=== PATIENT | female | born 1975 | race Caucasian/White ===

== ENCOUNTER 2017-09-08 13:27 | Emergency (ER) | payer MEDICAID, SELFPAY ==
[2017-09-08 13:46] VITALS: BP 134/74; PULSE 64; RESP 16; TEMP 36.9; O2SAT 99; BMI 23.6
[2017-09-08 14:20] LABS: UTC Influenza A Antigen Negative (Negative); UTC Influenza B Antigen Negative (Negative); UTC Strep Screen (Rapid) Negative (Negative)
--- NOTE | 2017-09-08 14:30 | HMH.EDUTC ---
[facility] [place] Disposition Clinical Impression: Acute sinusitis with symptoms > 10 days Disposition: Home, Self-Care Condition on Discharge: Good Instructions: DI for Sinusitis Additional Instructions: * Start antibiotic and be sure to take as ordered for the FULL length of time even if you feel better. Sinus infections do not get better overnight. It may take 2-3 days to notice much improvement so be sure to use conservative measures as discussed for symptoms. * OK to continue Sudafed. * Start Flonase 2 sprays each nostril daily to help with nasal congestion, sinus and ear pressure/inflammation. if this really helps, similiar to your nasonex and safe to take year round. ONce worse symptoms are over, decrease to one spray each nostril daily and see if that is just as helpful. If not, increase back to two. * Lots of fluids * Sleep elevated * Humidifier/vaporizer * Sinus rinses * warm salt water gargles * warm fluids * sore throat lozenges Prescriptions: Amoxicillin/Potassium Clav [Augmentin 875-125 Tablet] 1 tab PO Q12H #20 tab Fluticasone Propionate [Flonase 50mcg nasal spray 16gm] 2 spr NS DAILY #1 bottle Referrals: Bradly Britton MD [Primary Care Provider] - (IMMEDIATELY for new or worsening symptoms OR no noticeable improvement over the next 3-4 days. 911 for difficulty breathing or swallowing.) Forms: Work/School Release Time of Disposition: 14:41 Medical Decision Making Vital Signs: 09/08/17 13:46 Temperature 98.5 F Temperature Source Temporal Artery Scan Pulse Rate [Left] 64 Respiratory Rate 16 Blood Pressure [Left Arm] 134/74 Blood Pressure Mean [Left Arm] 94 Blood Pressure Source [Left Arm] Automatic Cuff Blood Pressure Position [Left Arm] Sitting 02 Sat by Pulse Oximetry 99 Oxygen Delivery Method Room Air - Lab Data Lab Results 09/08/17 13:48: Influenza Type A Ag Negative, Influenza Type B Ag Negative, Strep Scn Rapid Clinic Negative Orders (Tests/Meds): ORDERS Category Date Time Status Strep Screen Confirmation Stat Micro 09/08/17 13:48 Received - [place] Inquiry Pt receiving controlled substance: No [facility] [place] HPI - General Stated complaint: ears hurting,poss flu Time Seen by Provider: 09/08/17 14:15 Mode of Arrival: Ambulatory Source of Information: Patient Limitations: No Limitations Description of Symptoms (Recalled from Triage Doc. by RN): COUGH, CONGESTION, SORE THROAT YESTERDAY HEENT Symptoms (Recalled from RN notes): Yes Resp Symptoms (Recalled from RN notes): No Skin Symptoms (Recalled from RN notes): No MS Symptoms (Recalled from RN notes): No Functional Status (Recalled from RN notes): N - History of Present Illness Provider Complaint: c/o nasal congestion, thick nasal drainage, sore throat, PND x weeks to months. Really I keep it . Was seen at clinic 2 weeks ago for it. Enc to stop claritin and start zyrtec so she has. Despite mucinex, zyrtec, sudafed, and tylenol she has had aches, chills, feeling feverish and persistant symptoms w/ sinus pain at times now x 3-4 days. Reports years ago was on nasonex and it helped. Asked for prescription at [facility] but was told it was OTC and couldn't find it. Thinks her insurance would cover it if appropriate. Two coworkers w/ flu. Has not had flu vaccine. - Related Data Previous Rx's Medication Instructions Recorded Amoxicillin/Potassium Clav 1 tab PO Q12H #20 tab 09/08/17 [Augmentin 875-125 Tablet] Fluticasone Propionate [Flonase 2 spr NS DAILY #1 bottle 09/08/17 50mcg nasal spray 16gm] Allergies Allergy/AdvReac Type Severity Reaction Status Date / Time codeine AdvReac Mild VOMITING Verified 09/08/17 13:51 - Worker's Comp Is this a Worker's Comp case?: No H History I have reviewed the patient's past medical history: Yes (environmental allergies) Other Surgeries: Yes: Other (hysterectomy) - *Social History Smoking Status: Never smoker Alcohol Intake: never - Psychiatric History Expr
--- NOTE | 2017-09-08 14:34 | ED_ITS ---
[facility] [place] Impression: Acute sinusitis with symptoms > 10 days Disposition: Home, Self-Care Condition on Discharge: Good Instructions: DI for Sinusitis Additional Instructions: * Start antibiotic and be sure to take as ordered for the FULL length of time even if you feel better. Sinus infections do not get better overnight. It may take 2-3 days to notice much improvement so be sure to use conservative measures as discussed for symptoms. * OK to continue Sudafed. * Start Flonase 2 sprays each nostril daily to help with nasal congestion, sinus and ear pressure/inflammation. if this really helps, similiar to your nasonex and safe to take year round. ONce worse symptoms are over, decrease to one spray each nostril daily and see if that is just as helpful. If not, increase back to two. * Lots of fluids * Sleep elevated * Humidifier/vaporizer * Sinus rinses * warm salt water gargles * warm fluids * sore throat lozenges Prescriptions: Amoxicillin/Potassium Clav [Augmentin 875-125 Tablet] 1 tab PO Q12H #20 tab Fluticasone Propionate [Flonase 50mcg nasal spray 16gm] 2 spr NS DAILY #1 bottle Referrals: Bradly Britton MD [Primary Care Provider] - (IMMEDIATELY for new or worsening symptoms OR no noticeable improvement over the next 3-4 days. 911 for difficulty breathing or swallowing.) Forms: Work/School Release Time of Disposition: 14:41 Medical Decision Making Vital Signs: 09/08/17 13:46 Temperature 98.5 F Temperature Source Temporal Artery Scan Pulse Rate [Left] 64 Respiratory Rate 16 Blood Pressure [Left Arm] 134/74 Blood Pressure Mean [Left Arm] 94 Blood Pressure Source [Left Arm] Automatic Cuff Blood Pressure Position [Left Arm] Sitting 02 Sat by Pulse Oximetry 99 Oxygen Delivery Method Room Air - Lab Data Lab Results 09/08/17 13:48: Influenza Type A Ag Negative, Influenza Type B Ag Negative, Strep Scn Rapid Clinic Negative Orders (Tests/Meds): ORDERS Category Date Time Status Strep Screen Confirmation Stat Micro 09/08/17 13:48 Received - [place] Inquiry Pt receiving controlled substance: No [facility] [place] - General Stated complaint: ears hurting,poss flu Time Seen by Provider: 09/08/17 14:15 Mode of Arrival: Ambulatory Source of Information: Patient Limitations: No Limitations Description of Symptoms (Recalled from Triage Doc. by RN): COUGH, CONGESTION, SORE THROAT YESTERDAY HEENT Symptoms (Recalled from RN notes): Yes Resp Symptoms (Recalled from RN notes): No Skin Symptoms (Recalled from RN notes): No MS Symptoms (Recalled from RN notes): No Functional Status (Recalled from RN notes): N - History of Present Illness Provider Complaint: c/o nasal congestion, thick nasal drainage, sore throat, PND x weeks to months. Really I keep it . Was seen at clinic 2 weeks ago for it. Enc to stop claritin and start zyrtec so she has. Despite mucinex, zyrtec, sudafed, and tylenol she has had aches, chills, feeling feverish and persistant symptoms w/ sinus pain at times now x 3-4 days. Reports years ago was on nasonex and it helped. Asked for prescription at clinic but was told it was OTC and couldn't find it. Thinks her insurance would cover it if appropriate. Two coworkers w/ flu. Has not had flu vaccine. - Related Data Previous Rx's Medication Instructions Recorded Amoxicillin/Potassium Clav 1 tab PO Q12H #20 tab 09/08/17
== END 2017-09-08 14:43 | disposition home or self-care (01) ==
PROVIDERS: Emergency Provider Nurse Practitioner Family; PCP Emergency Medicine
DX: J01.90 Acute sinusitis, unspecified (principal)
CPT/HCPCS: 87804; 87880; 99201

== ENCOUNTER → 2018-04-29 08:21 | Outpatient (CLI) | payer MEDICAID, SELFPAY ==
--- NOTE | 2018-04-29 08:22 | MM_ITS ---
MM Dig screening mamm BI w/CAD CAD Screening COMPARISON: None, this is baseline INDICATION: There is no personal or family history of breast cancer TECHNIQUE: Standard CC and MLO images were obtained. R2 CAD reviewed. FINDINGS: Prominent diffuse heterogenic fibroglandular densities are seen in both breast most prominent in the upper outer quadrants somewhat lessening the sensitivity of mammography.. There are slightly suspicious nodular densities in the central portions of both breast best seen on the MLO projections. These are likely summation shadow but recommend the patient return for spot compression MLO views and 90 degree lateral views for additional evaluation. There are no suspicious microcalcifications. IMPRESSION: Dense and heterogenic parenchymal pattern with possible nodular densities in each breast as described BI-RADS Category: 0 Need Additional Imaging Evaluation RECOMMENDED FOLLOW-UP: IMM - IMMEDIATE FOLLOW-UP RECOMMENDED (A letter has been sent to the patient regarding results of the study.)
== END ==
PROVIDERS: PCP Emergency Medicine; Visit Provider Nurse Practitioner Obstetrics & Gynecology
DX: Z12.31 Encounter for screening mammogram for malignant neoplasm of breast (principal)
CPT/HCPCS: 77067

== ENCOUNTER → 2018-06-08 14:32 | Outpatient (CLI) | payer MEDICAID, SELFPAY ==
--- NOTE | 2018-06-08 | US_ITS ---
MM Dig mamm BI DX w/CAD, US breast RT complete, US breast LT complete INDICATION: Follow-up abnormal mammogram ORDERING PHYSICIAN: Seun Dennis MD PATIENT AGE: 42 years COMPARISON: None TECHNIQUE: Bilateral problem solving views along with bilateral breast ultrasound FINDINGS: There is dense fibroglandular tissue which decreases the sensitivity of mammography. Right breast: The asymmetric density in the central aspect of the right breast is not duplicated on spot compression views no or a right ML view. Right breast ultrasound: Echo dense fibroglandular tissue. No cystic or solid nodules apparent Left breast: Asymmetric density in the central aspect of the left breast appear to compress out as fibroglandular tissue. There is some asymmetry inferior to the area of concern also probably due to fibroglandular tissue. Left breast ultrasound: No solid or cystic lesions evident. Echo dense breast tissue noted. IMPRESSION: No convincing evidence of malignancy. Asymmetric density is probably related to fibroglandular tissue. Recommend bilateral 6 month follow-up with spot compression views BI-RADS Category: 3 Probably Benign Finding Short Term Follow-up RECOMMENDED FOLLOW-UP: 6M - 6 MONTH FOLLOW-UP (A letter has been sent to the patient regarding results of the study.)
== END ==
PROVIDERS: PCP Nurse Practitioner Obstetrics & Gynecology; Visit Provider Nurse Practitioner Obstetrics & Gynecology
DX: R92.2 Inconclusive mammogram (principal)
CPT/HCPCS: 76641; 77066

== ENCOUNTER → 2018-06-16 08:24 | Outpatient (CLI) | payer MEDICAID, SELFPAY ==
--- NOTE | 2018-06-16 08:25 | US_ITS ---
US gallbladder HISTORY: ITS.REASON: n/v abd pain ORDERING PHYSICIAN: Bradly Britton MD PATIENT AGE: 42 years Comparison: None FINDINGS: PANCREAS: Unremarkable. No obvious mass or abnormal fluid collection. No ductal dilatation LIVER: No focal liver lesions demonstrated. Homogeneous echogenicity. No intrahepatic biliary ductal dilatation evident RIGHT KIDNEY: Unremarkable. Normal size and echogenicity. No hydronephrosis GALLBLADDER: Gallstones are present. No gallbladder wall thickening, pericholecystic fluid, or biliary dilatation is evident.. Common bile duct measures 6 mm IMPRESSION: Cholelithiasis
== END ==
PROVIDERS: PCP Physician Assistant; Visit Provider Emergency Medicine
DX: R10.9 Unspecified abdominal pain (principal); R11.2 Nausea with vomiting, unspecified
CPT/HCPCS: 76705

== ENCOUNTER → 2018-07-03 13:39 | Outpatient (CLI) | payer MEDICAID, SELFPAY ==
[2018-07-03 14:28] LABS: Basophils # 0.1 K/mm3 (0-0.2); Eosinophils # 0.2 K/mm3 (0.0-0.4); Eosinophils % 3.3 % (0.1-12.0); Hemoglobin 12.6 g/dL (12.2-16.2); Lymphocytes # 1.6 K/mm3 (0.7-4.5); Lymphocytes % 24.6 K/mm3 (10-50); Mean Corpuscular HGB Conc 31.5 g/dL (31.8-35.4); Mean Corpuscular Hemoglobin 29.3 pg (27.0-31.2); Mean Platelet Volume 7.5 fl (7.4-10.4); Monocytes # 0.3 K/mm3 (0.1-1.0); Neutrophils # 4.2 K/mm3 (1.8-7.8); Neutrophils % 67.1 % (37.0-80.0); Platelet Count 303 K/mm3 (142-424); Red Cell Distribution Width 12.9 % (11.5-17.5); White Blood Count 6.3 K/mm3 (4.8-10.8)
[2018-07-03 16:28] LABS: Alanine Aminotransferase 29 U/L (12-78); Albumin Level 4.3 gm/dL (3.4-5.0); Albumin/Globulin Ratio 1.3 (1.1-1.8); Alkaline Phosphatase 60 U/L (46-116); Anion Gap 12.1 mEq/L (5-15); Aspartate Amino Transferase 17 U/L (15-37); Bilirubin,Total 0.3 mg/dL (0.2-1.0); Blood Urea Nitrogen 13 mg/dL (7-18); Calcium 9.6 mg/dL (8.5-10.1); Carbon Dioxide 31 mmol/L (21.0-32.0); Chloride 104 mmol/L (98-107); Creatinine,Serum 0.75 mg/dL (0.55-1.02); Estimated Glomerular Filt Rate 85 ml/min (>60); GFR (African American) 103 ML/MIN (>60); Globulin 3.4 gm/dl (1.3-3.2); Glucose 82 mg/dL (74-106); Potassium 4.1 mmoL/L (3.5-5.1); Sodium 143 mmol/L (136-145); Total Protein,Serum 7.7 gm/dL (6.4-8.2)
== END ==
PROVIDERS: Visit Provider Surgery
DX: K80.20 Calculus of gallbladder without cholecystitis without obstruction (principal)
CPT/HCPCS: 36415; 80053; 85025

== ENCOUNTER → 2018-08-27 21:28 | Outpatient (CLI) | payer MEDICAID, SELFPAY | PROVIDERS: Visit Provider Nurse Practitioner Family | DX: J02.9 Acute pharyngitis, unspecified (principal) ==

== ENCOUNTER → 2019-02-15 14:44 | Outpatient (CLI) | payer MEDICAID, SELFPAY ==
--- NOTE | 2019-02-15 14:47 | MM_ITS ---
MM Dig mamm BI DX w/CAD, US breast RT complete INDICATION: Follow-up abnormal mammogram ORDERING PHYSICIAN: Seun Dennis MD PATIENT AGE: 43 years COMPARISON: 04/29/2018, 06/08/2018 TECHNIQUE: Standard images performed along with right breast ultrasound FINDINGS: Very dense fibroglandular tissue decreasing the sensitivity of mammography. No malignant appearing mass or malignant appearing microcalcification. Right breast ultrasound: Echo dense fibroglandular tissue. No cyst or solid lesion evident. IMPRESSION: Benign findings. No evidence of malignancy. Recommend routine screening mammography as well as correlation with physical exam in this patient with very dense breast tissue BI-RADS Category: 1 Negative RECOMMENDED FOLLOW-UP: 1YR - 1 YEAR FOLLOW-UP (A letter has been sent to the patient regarding results of the study.)
== END ==
PROVIDERS: PCP Emergency Medicine; Visit Provider Nurse Practitioner Obstetrics & Gynecology
DX: R92.8 Other abnormal and inconclusive findings on diagnostic imaging of breast (principal)
CPT/HCPCS: 77066

== ENCOUNTER → 2019-02-16 08:52 | Outpatient (CLI) | payer MEDICAID, SELFPAY | PROVIDERS: PCP Emergency Medicine; Visit Provider Nurse Practitioner Obstetrics & Gynecology | DX: R92.8 Other abnormal and inconclusive findings on diagnostic imaging of breast (principal) | CPT/HCPCS: 76641 ==

== ENCOUNTER → 2020-06-13 12:22 | Outpatient (CLI) | payer BC, SELFPAY | PROVIDERS: PCP Nurse Practitioner Family; Visit Provider Nurse Practitioner Family | DX: Z03.818 Encounter for observation for suspected exposure to other biological agents ruled out (principal); R50.9 Fever, unspecified | CPT/HCPCS: U0003 ==

== ENCOUNTER → 2020-11-13 16:18 | Outpatient (CLI) | payer BC, SELFPAY ==
--- NOTE | 2020-11-13 16:18 | MM_ITS ---
PROCEDURE: MM DIG SCREENING MAMM BI W/CAD Digital Breast Tomosynthesis Included CLINICAL INDICATION: Routine Screening Mammogram There is a history of breast cancer in the patient's paternal cousin. COMPARISON: MG SCBI MM Dig screening mamm BI w/CAD from 04/29/2018 MG DXBI MM Dig mamm BI DX w/CAD from 06/08/2018 MG DIG MAMM-DX UNI-RT from 02/15/2019 TECHNIQUE: Standard CC and MLO images and 3D Tomosynthesis was obtained. R2 CAD reviewed. FINDINGS: Moderate diffuse somewhat heterogenic fibroglandular densities are seen in the central portions of both breast and the findings are fairly symmetrical and bilateral. Yordy images are most helpful in this type of breast parenchyma. There is no suspicious lesion in either breast and no suspicious microcalcifications. IMPRESSION: Moderate somewhat heterogenic breast density with no suspicious lesions seen BI-RAD Category: 1 Negative FOLLOW-UP: 1YR 1 Year Follow-up (A letter has been sent to the patient regarding results of the study.) Dictated by: Dr. Terry Poe MD 11/18/2020 08:39 Dr. Terry Poe MD in [place] 11/18/2020 08:39
== END ==
PROVIDERS: PCP Nurse Practitioner Family; Visit Provider Nurse Practitioner Obstetrics & Gynecology
DX: Z12.31 Encounter for screening mammogram for malignant neoplasm of breast (principal)
CPT/HCPCS: 77063; 77067

== ENCOUNTER → 2020-12-27 16:00 | Outpatient (CLI) | payer BC, SELFPAY | PROVIDERS: Visit Provider Nurse Practitioner Family | DX: Z20.822 Contact with and (suspected) exposure to COVID-19 (principal) | CPT/HCPCS: U0003 ==

== ENCOUNTER 2021-02-18 17:13 | Emergency (ER) | payer BC, SELFPAY ==
[2021-02-18 17:27] VITALS: BP 124/72; PULSE 101; RESP 16; TEMP 36.9; O2SAT 99; BMI 30.3
[2021-02-18 17:46] LABS: UTC Strep Screen (Rapid) Negative (Negative)
--- NOTE | 2021-02-18 17:51 | HMH.EDUTC ---
[facility] [place]: Bronchitis Maxillary sinusitis, acute Qualifiers: Recurrence: non-recurrent Qualified Code(s): J01.00 - Acute maxillary sinusitis, unspecified Disposition: Home, Self-Care Condition on Discharge: Good Instructions: Sinusitis, DI for Sinusitis, DI for Acute Bronchitis Additional Instructions: Start antibiotic today. Be sure to complete entire prescription even if feeling better Tylenol and ibuprofen as needed for pain or fever Humidifier/vaporizer/hot steamy shower Follow-up with primary care tomorrow. Follow-up immediately in the ER of the [facility] for new or worsening symptoms or no noticeable improvement over the next 48-72 hours. Stop smoking Start steroids today. Helps with inflammation therefore coughing and wheezing. Follow directions on package. Patient states they have taken them before. Prescriptions: predniSONE [Prednisone 20mg Tab] 20 mg PO BID #10 tab Transmission Status: Pending to [facility] Azithromycin [Zithromax 250mg tab] 250 mg PO DIRECTED #6 tab Transmission Status: Pending to [facility] Referrals: Daniel Davila MD [Primary Care Provider] - Forms: Work/School Release Time of Disposition: 17:56 Medical Decision Making - [place] Inquiry Pt receiving controlled substance: No Vital Signs: 02/18/21 17:27 Temperature 98.4 F Temperature Source Oral Pulse Rate [Right] 101 H Respiratory Rate 16 Blood Pressure [Right Arm] 124/72 Blood Pressure Mean [Right Arm] 89 02 Sat by Pulse Oximetry 99 - Lab Data Lab Results 02/18/21 17:36: Strep Scn Rapid Clinic Negative Orders (Tests/Meds): ORDERS Category Date Time Status Strep Screen Confirmation Stat Micro 02/18/21 17:36 Received [facility] [place] - General Chief complaint: [facility] Stated complaint: sore throat, facial pain Time Seen by Provider: 02/18/21 17:51 Mode of Arrival: Ambulatory Source of Information: Patient Limitations: No Limitations Description of Symptoms (Recalled from Triage Doc. by RN): pt c/o sinus pressure and sore throat. HEENT Symptoms (Recalled from RN notes): Yes (sore throat and sinus pressure) Resp Symptoms (Recalled from RN notes): No Skin Symptoms (Recalled from RN notes): No MS Symptoms (Recalled from RN notes): No Functional Status (Recalled from RN notes): na - History of Present Illness Provider Complaint: 45 yr old female presents for sinus pressure,yellow drainge,wheezing, cough and sore throat for 2 days - Related Data Home Medications Medication Instructions Recorded Confirmed aspirin 81 mg tablet,delayed 81 mg PO DAILY 07/13/20 12/27/20 release multivitamin 1 tab PO DAILY 07/13/20 12/27/20 loratadine 10 mg capsule 10 mg PO DAILY 11/10/20 12/27/20 Previous Rx's Medication Instructions Recorded ondansetron 4 mg disintegrating 4 mg PO Q6H PRN 3 Days #12 tab 12/27/20 tablet Azithromycin [Zithromax 250mg 250 mg PO DIRECTED #6 tab 02/18/21 tab] predniSONE [Prednisone 20mg 20 mg PO BID #10 tab 02/18/21 Tab] Allergies Allergy/AdvReac Type Severity Reaction Status Date / Time tomato Allergy Verified 02/18/21 17:21 codeine AdvReac Mild VOMITING Verified 02/18/21 17:21 - Worker's Comp Is this a Worker's Comp case?: No [facility] History - Hepatitis A Screen Drug use history?: No High risk sexual behaviors?: No History of sexually transmitted infection?: No Currently employed?: No Childcare worker?: No Do you have indoor plumbing?: Yes Do you have electricity?: Yes Attestation statement:: This patient has been screened for Hepatitis A risk factors. I have reviewed the patient's past medical history: Yes Medical History: Reports:: Anxiety, Gall Bladder Disease, Gastroesophageal Reflux Disease(GERD) Denies:: Cancer, Diabetes Mellitus Type 1, Diabetes Mellitus Type 2, Internal Pacemaker, MRSA, Seizures Other Medical History: Denies: Blood Transfusion Reactio
[2021-02-18 17:58] VITALS: BP 132/81; PULSE 85; RESP 18; TEMP 36.6
[2021-02-18 17:59] LABS: Adenovirus,PCR Not Detected (NotDetected); Bordetella Pertussis Not Detected (NotDetected); Chlamydophila Pneumoniae, PCR Not Detected (NotDetected); Coronavirus 19, PCR Not Detected (NotDetected); Coronavirus 229E Not Detected (NotDetected); Coronavirus NL63 Not Detected (NotDetected); Coronovirus HKU1,PCR Not Detected (NotDetected); Human Metapneumovirus Not Detected (NotDetected); Influenza A, PCR Not Detected (NotDetected); Influenza AH1, 2009 Not Detected (NotDetected); Influenza AH1, PCR Not Detected (NotDetected); Influenza AH3,PCR Not Detected (NotDetected); Influenza B, PCR Not Detected (NotDetected); Mycoplasma Pneumoniae, PCR Not Detected (NotDetected); Parainfluenza 1, PCR Not Detected (NotDetected); Parainfluenza 2, PCR Not Detected (NotDetected); Parainfluenza 3, PCR Not Detected (NotDetected); Parainfluenza 4, PCR Not Detected (NotDetected); Respiratory Syncytial Virus Not Detected (NotDetected); Rhinovirus/Enterovirus Not Detected (NotDetected)
[2021-02-18 19:33] LABS: Coronavirus OC43 Detected (NotDetected)
== END 2021-02-18 18:01 | disposition home or self-care (01) ==
PROVIDERS: Emergency Provider Nurse Practitioner Family; PCP Internal Medicine Adolescent Medicine
DX: J20.9 Acute bronchitis, unspecified (principal); J01.00 Acute maxillary sinusitis, unspecified; F41.9 Anxiety disorder, unspecified; K21.9 Gastro-esophageal reflux disease without esophagitis; F17.210 Nicotine dependence, cigarettes, uncomplicated; Z87.891 Personal history of nicotine dependence
CPT/HCPCS: 87581; 87633; 87798; 87880; 99202; G0463

== ENCOUNTER → 2021-03-15 07:32 | Outpatient (CLI) | payer BC, SELFPAY ==
--- NOTE | 2021-03-15 07:39 | CT_ITS ---
PROCEDURE: CT SINUS WO CON CLINICAL HISTORY: SINUSITIS,FACIAL EDEMA COMPARISON: No exams were available for comparison TECHNIQUE: Axial images obtained with sagittal and coronal reformats. All CT scans at the facility use one or more dose reduction, viz: automated exposure control, ma/kV adjustment per patient size (including targeted exams where dose is matched to indication, i.e. head), or iterative reconstruction technique. FINDINGS: No sinus air-fluid levels evident. The ostiomeatal units of the maxillary sinus are patent. No retention cysts. There is only minimal mucosal thickening of the ethmoid sinuses. The frontal, sphenoid, and maxillary sinuses have an unremarkable appearance. No mastoid effusion. The TMJs have an unremarkable appearance. No significant nasal septal deviation. Unremarkable appearing orbits. IMPRESSION: Essentially negative CT paranasal sinuses Dictated by: Raymundo Salas MD 03/15/2021 09:35 Raymundo Salas MD in [place] 03/15/2021 09:35
== END ==
PROVIDERS: PCP Internal Medicine Adolescent Medicine; Visit Provider Internal Medicine Adolescent Medicine
DX: J01.01 Acute recurrent maxillary sinusitis (principal); R60.0 Localized edema
CPT/HCPCS: 70486

== ENCOUNTER → 2021-09-20 14:46 | Outpatient (CLI) | payer BC, SELFPAY | PROVIDERS: Visit Provider Nurse Practitioner | DX: U07.1 COVID-19 (principal) | CPT/HCPCS: C9803; U0003; U0005 ==

== ENCOUNTER 2021-10-23 17:13 | Emergency (ER) | payer BC, SELFPAY ==
--- NOTE | 2021-10-23 17:10 | ECG_ITS ---
APPROVED REPORT Exam: Resting ECG HR:64 bpm ECG Measurements Heart Rate 64 AXES [place] 113 P 59 QRSd 84 QRS 63 QT 364 T 43 QTc 373 Conclusion SINUS RHYTHM WITH SHORT [place] INTERVAL BORDERLINE ECG INTERPRETATION BASED ON A DEFAULT AGE OF 41 YEARS UNCONFIRMED REPORT Electronically signed by : Daniel Davila MD 10/24/2021 21:56:14
[2021-10-23 17:14] VITALS: BP 143/92; PULSE 79; RESP 18; TEMP 36.8; O2SAT 100; BMI 26.5
--- NOTE | 2021-10-23 17:18 | XR_ITS ---
PROCEDURE INFORMATION: Exam: XR Chest Exam date and time: 10/23/2021 5:18 PM Age: 46 years old Clinical indication: Shortness of breath; Chest pressure; Patient HX: SOA and chest pain, patient positive for covid 1 month ago; . Non-smoker TECHNIQUE: Imaging protocol: XR of the chest. Views: 2 views. COMPARISON: CR CXR CHEST(2 VIEWS-NOT PORTABLE) 01/11/2016 11:56 AM FINDINGS: Lungs: Right apical calcified granuloma. No acute airspace consolidation. Pleural spaces: Unremarkable. No pleural effusion. No pneumothorax. Heart/Mediastinum: Unremarkable. No cardiomegaly. Bones/joints: Unremarkable. IMPRESSION: No acute findings.
--- NOTE | 2021-10-23 17:29 | HMH.EDCP ---
ED Disposition Clinical Impression: Atypical chest pain, Costalchondritis Disposition: Home, Self-Care Condition on Discharge: Good Instructions: DI for Atypical Chest Pain Prescriptions: Ibuprofen [Ibuprofen 800mg Tablet] 800 mg PO TIDP PRN #20 tab PRN Reason: Moderate Pain Transmission Status: Pending to [facility] methocarbamoL [Methocarbamol] 750 mg PO QID 7 Days #28 tab Transmission Status: Pending to [facility] Referrals: Daniel Davila MD [Primary Care Provider] - - Critical Care Critical Care Time: No Attestation: On 10/23/21, the high probability of a clinically significant, sudden or life threatening deterioration of the following system(s) required my full and direct attention, intervention and personal management. The time I documented below is in addition to time spent performing reported procedures but includes the following listed in this critical care notation. Medical Decision Making - Medical Records Medical records reviewed: Yes: I reviewed the patient's medical records. - [place] Inquiry Pt receiving controlled substance: No Vital Signs: 10/23/21 17:14 Temperature 98.3 F Temperature Source Oral Pulse Rate [Left Radial] 79 Respiratory Rate 18 Blood Pressure [Right Arm] 143/92 H Blood Pressure Mean [Right Arm] 109 Blood Pressure Source [Right Arm] Automatic Cuff Blood Pressure Position [Right Arm] Sitting 02 Sat by Pulse Oximetry 100 Oxygen Delivery Method Room Air - Lab Data Lab Results 10/23/21 17:15: WBC 7.2, RBC 4.83, Hgb 14.5, Hct 43.0, MCV 89.0, MCH 29.9, MCHC 33.6, RDW 13.3, Plt Count 315, MPV 9.3, Neut % (Auto) 69.3, Lymph % (Auto) 22.0, [place] % (Auto) 4.2, Eos % (Auto) 2.5, Baso % (Auto) 2.0, Neut # (Auto) 5.0, Lymph # (Auto) 1.6, [place] # (Auto) 0.3, Eos # (Auto) 0.2, Baso # (Auto) 0.2 10/23/21 17:15: Sodium 140, Potassium 3.6, Chloride 104, Carbon Dioxide 25, Anion Gap 14.6, BUN 11, Creatinine 0.60, Estimated Creat Clear 123, Estimated GFR 108, Est GFR ( Amer) 131, Glucose 105 H, Calcium 9.4, Troponin I < 0.01 Result diagrams: 10/23/21 17:15 10/23/21 17:15 Orders (Tests/Meds): ED MEDICATIONS Generic Name Dose Route Start Last Admin Trade Name Freq PRN Reason Stop Dose Admin Sodium Chloride 10 ml 10/23/21 17:18 Sodium Chloride 0.9% 10ml Flush Syringe IV 11/22/21 17:17 NEEDED PRN Maintain IV Site Sodium Chloride 8 ml 10/23/21 17:28 Sodium Chloride 0.9% 10ml Vial IV 11/22/21 17:27 NEEDED PRN dilute pepcid Discontinued Medications Generic Name Dose Route Start Last Admin Trade Name Freq PRN Reason Stop Dose Admin Famotidine 20 mg 10/23/21 17:28 10/23/21 17:47 Famotidine 20mg/2ml Vial IV 10/23/21 17:29 20 mg ONCE ONE Administration Ketorolac Tromethamine 30 mg 10/23/21 17:28 10/23/21 17:47 Ketorolac 30mg/Ml Vial IV 10/23/21 17:29 30 mg ONCE ONE Administration ORDERS Category Date Time Status Troponin I Q3H Lab 10/23/21 20:30 Ordered Troponin I Q3H Lab 10/23/21 23:30 Ordered - Radiology Data #1 Image(s): Chest Image Reviewed: Yes I reviewed the patient's radiology results, Yes I reviewed the patient's radiology image, Yes I have reviewed radiologist's interpretation Preliminary Findings: Normal/NAD - ECG Data Tracing #1 I reviewed this ECG and interpreted as documented below: ECG initial impression date: 10/23/21 ECG initial impression time: 17:10 ECG normal with no acute: arrhythmias, ischemia, conduction abnormalities, chamber hypertrophy Normal Sinus Rhythm: Yes - Reevaluation(s) Time: 18:31 Reevaluation #1: On reevaluation, the patient is feeling better. Troponin was negative. I do believe this is likely musculoskeletal in nature. Is easily reproducible on examination. Patient be placed on short course analgesics as well as is muscle relaxers. Is low risk for acute coronary syndrome based on heart score. Patient needs fo
[2021-10-23 17:50] LABS: Basophils # 0.2 K/mm3 (0-0.2); Eosinophils # 0.2 K/mm3 (0.0-0.4); Eosinophils % 2.5 % (0.1-12.0); Hemoglobin 14.5 g/dL (12.2-16.2); Lymphocytes # 1.6 K/mm3 (0.7-4.5); Mean Corpuscular HGB Conc 33.6 g/dL (31.8-35.4); Mean Corpuscular Hemoglobin 29.9 pg (27.0-31.2); Mean Platelet Volume 9.3 fl (7.4-10.4); Monocytes # 0.3 K/mm3 (0.1-1.0); Monocytes % 4.2 % (1.7-9.3); Neutrophils % 69.3 % (37.0-80.0); Platelet Count 315 K/mm3 (142-424); Red Blood Count 4.83 M/mm3 (4.20-5.40); Red Cell Distribution Width 13.3 % (11.5-17.5); White Blood Count 7.2 K/mm3 (4.8-10.8)
[2021-10-23 17:56] LABS: Anion Gap 14.6 mEq/L (5-15); Blood Urea Nitrogen 11 mg/dl (7-17); Calcium 9.4 mg/dl (8.4-10.2); Carbon Dioxide 25 mmol/L (22.0-30.0); Chloride 104 mmol/L (98-107); Creatinine Clearance Estimated 123 mL/min (50-200); Estimated Glomerular Filt Rate 108 ml/min (>60); GFR (African American) 131 ML/MIN (>60); Glucose 105 mg/dl (74-100); Potassium 3.6 mmoL/L (3.5-5.1); Sodium 140 mmol/L (136-145)
[2021-10-23 18:16] LABS: Troponin I < 0.01 ng/ml (0.00-0.034)
[2021-10-23 18:30] VITALS: BP 122/78; PULSE 65; RESP 16; O2SAT 98
[2021-10-23 18:36] VITALS: BP 122/78; PULSE 65; RESP 16; TEMP 36.8; O2SAT 98
== END 2021-10-23 18:39 | disposition home or self-care (01) ==
PROVIDERS: Emergency Provider Emergency Medicine; PCP Internal Medicine Adolescent Medicine
DX: R07.89 Other chest pain (principal); M94.0 Chondrocostal junction syndrome [Tietze]; K21.9 Gastro-esophageal reflux disease without esophagitis
CPT/HCPCS: 71046; 80048; 84484; 85025; 93005; 96374; 96375; 99283

== ENCOUNTER → 2022-10-30 15:44 | Outpatient (CLI) | payer BC, SELFPAY ==
[2022-10-30 17:43] LABS: Alanine Aminotransferase 23 U/L (12-78); Albumin Level 4.7 g/dl (3.5-5.0); Albumin/Globulin Ratio 1.7 (1.1-1.8); Alkaline Phosphatase 62 U/L (38-126); Anion Gap 9.7 mEq/L (5-15); Aspartate Amino Transferase 34 U/L (14-36); Bilirubin,Total 0.7 mg/dl (0.2-1.3); Blood Urea Nitrogen 15 mg/dl (7-17); Calcium 9.6 mg/dl (8.4-10.2); Carbon Dioxide 30 mmol/L (22.0-30.0); Chloride 104 mmol/L (98-107); Chol/HDL Ratio 2.4 (1-3.5); Cholesterol 156 mg/dl (140-200); Estimated Glomerular Filt Rate 60 ml/min (>60); GFR (African American) 72 ML/MIN (>60); Globulin 2.7 g/dL (1.3-3.2); Glucose 97 mg/dl (74-100); HDL Cholesterol 64 mg/dl (40-60); Potassium 4.7 mmoL/L (3.5-5.1); Sodium 139 mmol/L (136-145); Total Protein,Serum 7.4 g/dl (6.3-8.2); Triglycerides 80 mg/dl (30-150); VLDL Cholesterol 16 mg/dL (0-40)
[2022-10-30 17:56] LABS: Direct LDL Cholesterol 64.43 mg/dL (100-129)
[2022-10-30 17:57] LABS: Basophils # 0.1 K/mm3 (0-0.2); Basophils % 1.1 % (0.1-2.0); Eosinophils # 0.1 K/mm3 (0.0-0.4); Eosinophils % 2.2 % (0.1-12.0); Hematocrit 39.6 % (37.0-47.0); Hemoglobin 13.1 g/dL (12.2-16.2); Lymphocytes # 1.6 K/mm3 (0.7-4.5); Lymphocytes % 23.9 % (10-50); Mean Corpuscular HGB Conc 33.1 g/dL (31.8-35.4); Mean Corpuscular Hemoglobin 29.7 pg (27.0-31.2); Mean Corpuscular Volume 89.6 fl (81-99); Mean Platelet Volume 9.1 fl (7.4-10.4); Monocytes # 0.4 K/mm3 (0.1-1.0); Monocytes % 5.9 % (1.7-9.3); Neutrophils # 4.4 K/mm3 (1.8-7.8); Neutrophils % 66.9 % (37.0-80.0); Platelet Count 286 K/mm3 (142-424); Red Blood Count 4.42 M/mm3 (4.20-5.40); Red Cell Distribution Width 13.1 % (11.5-17.5); White Blood Count 6.5 K/mm3 (4.8-10.8)
== END ==
PROVIDERS: PCP Internal Medicine Adolescent Medicine; Visit Provider Nurse Practitioner Obstetrics & Gynecology
DX: Z01.419 Encounter for gynecological examination (general) (routine) without abnormal findings (principal)
CPT/HCPCS: 36415; 80053; 80061; 85025

== ENCOUNTER → 2023-01-30 14:54 | Outpatient (CLI) | payer BC, SELFPAY ==
--- NOTE | 2023-01-30 15:04 | XR_ITS ---
FINAL REPORT TECHNIQUE: 5 views CLINICAL HISTORY: NO INJURY FINDINGS: There is no fracture present. There is no malalignment. Neural foramen appear adequately patent. There are no significant degenerative changes. Surgical clips are seen in the pelvis. IMPRESSION: No acute process. Reviewed, Interpreted and Dictated by Herve Grullon MD Transcribed by Sheron Zabala Authenticated and [facility]
== END ==
PROVIDERS: PCP Internal Medicine Adolescent Medicine; Visit Provider Physician Assistant
DX: M54.50 Low back pain, unspecified (principal)
CPT/HCPCS: 72110

== ENCOUNTER → 2023-04-10 13:10 | Outpatient (CLI) | payer BC, SELFPAY ==
--- NOTE | 2023-04-10 13:13 | CT_ITS ---
FINAL REPORT TECHNIQUE: After the administration of intravenous contrast, axial images through the chest were performed by computed tomography.This study was performed with techniques to keep radiation doses as low as reasonably achievable, (ALARA). Individualized dose reduction techniques using automated exposure control or adjustment of mA and/or kV according to the patient''s size were employed. CLINICAL HISTORY: LUNG NODULE FINDINGS: There is no axillary adenopathy. There is no hilar or mediastinal adenopathy. The heart size is normal. There is no pericardial or pleural effusion. No suspicious infiltrate or nodule identified. There is a calcified granuloma in the posterior right upper lobe. There is mild scar or atelectasis in the lung bases. The patient is status post cholecystectomy. IMPRESSION: No acute process. Reviewed, Interpreted and Dictated by Khoa Shi III, MD Transcribed by Marisela Duron Authenticated and [facility]
== END ==
PROVIDERS: PCP Internal Medicine Adolescent Medicine; Visit Provider Physician Assistant
DX: R91.1 Solitary pulmonary nodule (principal)
CPT/HCPCS: 71260; Q9967

== ENCOUNTER 2023-05-24 05:09 | Emergency (ER) | payer BC, SELFPAY ==
--- NOTE | 2023-05-24 | ECG_ITS ---
APPROVED REPORT Exam: Resting ECG HR:49 bpm ECG Measurements Heart Rate 49 AXES OH 127 P 68 QRSd 88 QRS 74 QT 405 T 60 QTc 376 Conclusion SINUS BRADYCARDIA BORDERLINE ECG UNCONFIRMED REPORT Electronically signed by : Daniel Davila MD 05/25/2023 07:33:10
[2023-05-24 05:09] VITALS: BP 143/95; PULSE 69; RESP 18; O2SAT 99; BMI 23.0
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
[2023-05-24 05:26] VITALS: BP 133/83; BP 135/83; BP 141/86; PULSE 56; PULSE 57; PULSE 59
--- NOTE | 2023-05-24 06:02 | PC.NURSE ---
in room talking with patient at this time.
[2023-05-24 06:20] VITALS: BP 148/97; PULSE 77; RESP 19; TEMP 36.8; O2SAT 98
== END 2023-05-24 06:22 | disposition home or self-care (01) ==
PROVIDERS: Emergency Provider Emergency Medicine
DX: R55 Syncope and collapse (principal); R00.1 Bradycardia, unspecified
CPT/HCPCS: 93005; 99283

== ENCOUNTER 2025-01-12 09:49 | Outpatient (CLI) | payer OTHER, SELFPAY ==
[2025-01-12 11:17] LABS: 25-OH Vitamin D, Total 43.3 ng/mL (30-100)
[2025-01-12 11:44] LABS: HIV Combo NEGATIVE (Negative)
[2025-01-12 11:51] LABS: Hepatitis C Ab Qual. W/ RFX NEGATIVE (Negative)
[2025-01-13 09:02] LABS: FSH 73.6 mIU/mL (.)
== END 2025-01-12 23:59 | disposition home or self-care (01) ==
LOC: LAB 09:49
PROVIDERS: PCP Internal Medicine Adolescent Medicine; Visit Provider Nurse Practitioner Obstetrics & Gynecology
DX: Z11.3 Encounter for screening for infections with a predominantly sexual mode of transmission (principal)
CPT/HCPCS: 36415; 82306; 83001; 83002; 86803; 87389

== ENCOUNTER 2025-02-04 10:36 | Outpatient (CLI) | payer OTHER, SELFPAY ==
--- NOTE | 2025-02-04 10:30 | MM_ITS ---
PROCEDURE INFORMATION: Exam: MG Bilateral Screening 3D Mammography Exam date and time: 02/04/2025 10:43 AM Age: 49 years old Clinical indication: Screening mammogram TECHNIQUE: Imaging protocol: Bilateral Screening tomosynthesis and 2D mammography including computer-aided detection (CAD) when performed. COMPARISON: 1. MG MM DIG SCREENING MAMM BI W/CAD 11/13/2020 4:23 PM 2. MG DIG MAMM-DX UNI-RT 02/15/2019 3:35 PM 3. MG DXBI MM Dig mamm BI DX w/CAD 06/08/2018 2:45 PM 4. MG SCBI MM Dig screening mamm BI w/CAD 04/29/2018 8:45 AM FINDINGS: MAMMOGRAPHY: Breast composition: The breast is heterogeneously dense, which may obscure small masses. Mass: None. Architectural distortion: No new or suspicious architectural distortion. Calcifications: No new or suspicious calcifications are present Asymmetric density: No new or suspicious asymmetric density is present Skin thickening: None. Axillary adenopathy: None. IMPRESSION: No mammographic evidence of malignancy. Recommend annual screening mammography unless otherwise clinically indicated. ASSESSMENT: BI-RADS category 1: Negative.
== END 2025-02-04 23:59 | disposition home or self-care (01) ==
LOC: RAD 10:37
PROVIDERS: PCP Internal Medicine Adolescent Medicine; Visit Provider Nurse Practitioner Obstetrics & Gynecology
DX: Z12.31 Encounter for screening mammogram for malignant neoplasm of breast (principal); R92.333 Mammographic heterogeneous density, bilateral breasts
CPT/HCPCS: 77063; 77067